=== PATIENT | male | born 1985 | race Caucasian/White ===

== ENCOUNTER 2017-01-18 19:39 | Emergency (ER) | payer SELFPAY ==
[~2017-01-18] VITALS: Ht 188 cm; Wt 88.6 kg
[~2017-01-18 19:39] MED LIST: ATI2I IV; DIL1I IV; NAR4I IV; OXY5 PO; PRE10 PO; TYL325 PO
[2017-01-18 19:47] VITALS: BP 137/87; PULSE 101; RESP 16; O2SAT 98
--- NOTE | 2017-01-18 19:55 | ED.REPORT ---
HPI-Allergic Reaction Date of Service Jan 18, 2017 ED Provider: Nabil Guzman DO Pt is an otherwise healthy 31 year old male presents to the ED complaining of angioedema of the lips onset today. He c/o associated itching, rash, and throat swelling. He denies SOB and any other symptoms. The pt reports that he noticed his symptoms after crawling through a crawl space at work. He states that he took 50 mg of Benadryl PO prior to arrival. Nursing Notes Stated Complaint: RASH,SORE THROAT,ITCHING Chief Complaint: Allergic Reaction Nursing Notes Reviewed: Yes Allergies: Coded Allergies: No Known Allergies (Verified Allergy, Unknown, 01/18/17) Scheduled PredniSONE-Expunged Drug, Do Not Renew! (PredniSONE-Expunged Drug, Do Not Renew! ) 10 Mg Tab 10 MG PO DAILYWM Scheduled PRN Acetaminophen-Expunged Drug, Do Not Renew! (Tylenol-Expunged Drug, Do Not Renew! ) 325 Mg Tablet 0 MG PO Q4HP PRN PRN Lorazepam-Expunged Drug, Do Not Renew! (Lorazepam-Expunged Drug, Do Not Renew!) 2 Mg/Ml Soln 0 MG IV Q4HP PRN PRN NALOXONE-Expunged Drug, Do Not Renew! (Narcan-Expunged Drug, Do Not Renew!) 0.4 Mg/Ml Soln 0 MG IV Q2MINP PRN PRN hydroMORPHone (DILAUDID Inj) 1 Mg/Ml Syr 1 MG IV Q1HP PRN PRN oxyCODONE-Expunged, Do Not Renew! (oxyCODONE-Expunged, Do Not Renew!) 5 Mg Tablet 5 MG PO Q4HP PRN PRN General Time Seen by MD: 19:53 Chief Complaint Swelling Hx Obtained From: Patient Arrived By: Walk-in Onset Occurred: 1 - 4 hours ago Symptom Duration: Since onset Severity: Current: No pain currently Severity: Maximum: No pain Recent Healthcare: No recent doctor visit, No recent hospitalization Similar Sx Previous: No Past Medical History Past Medical History Cellulitis Ulcerative colitis Past Surgical History Adenoids Reports: Tonsillectomy Smoking History Unknown if Ever Smoker Social History Alcohol Use: Denies alcohol use Drug Use: [employer] Occupation Construction Ambulatory Status Independent Review of Systems + Angioedema of lips Constitutional: Denies: Fever Ears / Nose / Throat: Reports: Tongue swelling Respiratory: Denies: Non-productive cough, Shortness of breath Skin: Reports Rash, Reports Swelling Allergy / Immune: Reports: Hives, Itching Complete sys rev & neg: except as marked. Physical Exam Initial Vital Signs Vital Signs (First) Date Time Temp Pulse Resp B/P Pulse Ox O2 Delivery O2 Flow Rate FiO2 01/18/17 19:47 36.9 101 16 137/87 98 Room Air Initial VS: Reviewed Head / Eyes: Atraumatic, Normocephalic Neck: Supple, Full range of motion Abdomen / GI: Soft, Non-tender Extremities: Vascular intact, Neuro intact Neurologic: Alert, Oriented, Nonfocal Psychiatric: Mood/affect normal, Behavior normal General/Constitutional: Awake, Alert Respiratory / Chest: Atraumatic, Breath sounds NL, Breath sounds = bilat Cardiovascular: Heart rate NL, Regular rhythm, Heart sounds NL Skin: Warm, Dry Diffuse urticaria Head / Eyes: Atraumatic, Normocephalic Angioedema of lips Re-Eval/Medical Decision Source of Hx: Old records Re-Evaluation/Progress #1: Time of Eval: 19:57 Re-Evaluation/Progress Note: Informed pt of plan for treatment. Pt understands and agrees with plan for treatment. All questions addressed. Re-Evaluation/Progress #2: Time of Eval: 21:22 Re-Evaluation/Progress Note: Pt rechecked. All symptoms are resolved. No lip swelling. Informed pt of plan for discharge. Pt understands and agrees with plan for discharge. F/U instructions and RTER warnings given. All questions addressed. Counseled Regarding: Diagnosis, Need for follow-up, When/why to return to ED Discharge & Departure Primary Impression: Angioedema Encounter type: initial encounter Qualified Code: T78.3XXA - Angioneurotic edema, initial encounter Additional Impressions: Allergic reaction Encounter type: initial encounter Qualified Code: T78.40XA - Allergy, unspecified, initial encounter Anaphylaxis Encounter type: initial encounter Qualified Code: T78.2XXA - Anaphylactic shock, unspecified, initial encounter Disposition: Home Discharge Condition All VS Reviewed: Yes Condition: Stable Patient Instructions: Anaphylaxis (ED), Angioedema (ED), General Allergic Reaction (ED) Additional Instructions: Use the epi-pen if you have another anaphylactic reaction with facial swelling or shortness of breath. Take Prednisone daily for 5 days. Call your primary care provider or the referral clinic tomorrow for allergy testing next week. Return to the Emergency Department for any new or concerning symptoms such as facial or lip swelling. Referrals: [facility] Scribe Attestation Portions of this note were transcribed by Linsey Meadows. I, Dr. Guzman personally performed the history, physical exam and medical decision-making; I reviewed and confirmed the accuracy of the information in the transcribed note. Signed by : Jorge Quevedo, 01/18/17. copies to: [facility] Nabil Guzman DO Jan 18, 2017 19:55 Linsey Carballo Jan 18, 2017 20:01
[2017-01-18 19:59] VITALS: BP 127/78; PULSE 87; RESP 16; O2SAT 95
[2017-01-18] MEDS ORDERED: Dexamethasone 10 mg/mL Inj IM ONE (20:00)
[2017-01-18 21:48] VITALS: BP 128/72; PULSE 81; RESP 20; O2SAT 97
== END 2017-01-18 21:46 | disposition home or self-care (01) ==
LOC: SED 19:39
DX: T78.3XXA Angioneurotic edema, initial encounter (principal); T78.40XA Allergy, unspecified, initial encounter; T78.2XXA Anaphylactic shock, unspecified, initial encounter; X58.XXXA Exposure to other specified factors, initial encounter; Y93.89 Activity, other specified; Y99.0 Civilian activity done for income or pay; Y92.59 Other trade areas as the place of occurrence of the external cause; F12.10 Cannabis abuse, uncomplicated
CPT/HCPCS: 96372; 99284; J0171; J1100; J1200